=== PATIENT | female | born 1960 | race Caucasian/White ===

== ENCOUNTER → 2016-10-18 | Outpatient (CLI) | payer BC | LOC: US 13:00 | DX: D17.39 Benign lipomatous neoplasm of skin and subcutaneous tissue of other sites (principal) | CPT/HCPCS: 76536 ==

== ENCOUNTER → 2020-12-06 | Outpatient (CLI) | payer BC ==
[~2020-12-06] MED LIST: CYCLOBENZAPRINE10 MG PO; ECOTRIN81 MG PO; ELAVIL 50 MG TA50 MG PO; ESTRADIOL1 EAC1 TD; LASIX20 MG PO; LEVOXYL25 MCG PO; LISINOPRIL20 MG PO; METOPROLOL SUCC25 MG PO; NEURONTIN100 MG PO; NORVASC5 MG PO; ONCE DAILY1 EACH PO; RANEXA1000 MG PO; RANEXA500 MG PO; ULTRAM50 MG PO; VITAMIN D21250 MCG PO
== END ==
LOC: KOH-I 12:42
DX: M25.552 Pain in left hip (principal)
CPT/HCPCS: 73502

== ENCOUNTER → 2021-03-26 | Outpatient (CLI) | payer BC | LOC: KOH-I 03-14 16:00 | DX: R51.9 Headache, unspecified (principal); M54.5 Low back pain | CPT/HCPCS: 70450; 72100 ==

== ENCOUNTER → 2021-08-29 | Outpatient (CLI) | payer BC | LOC: KOH-I 09:52 | DX: M54.50 Low back pain, unspecified (principal); M47.816 Spondylosis without myelopathy or radiculopathy, lumbar region; M47.814 Spondylosis without myelopathy or radiculopathy, thoracic region | CPT/HCPCS: 72070; 72100 ==

== ENCOUNTER → 2022-03-04 | Outpatient (CLI) | payer OTHER | LOC: EXRD 15:53 | DX: D44.0 Neoplasm of uncertain behavior of thyroid gland (principal); R59.0 Localized enlarged lymph nodes | CPT/HCPCS: 76536 ==